=== PATIENT | female | born 1930 | race Caucasian/White ===

== ENCOUNTER 2017-03-25 16:01 | Inpatient (IN) | payer OTHER, MEDICARE ==
[2017-03-25] VITALS: BP 160/73; PULSE 98; RESP 18; TEMP 99.1; O2SAT 99
[~2017-03-25] VITALS: Ht 167.6 cm; Wt 58.4 kg
[~2017-03-25 16:01] MED LIST: ALOE25CA2 PO; AMLO5TAB13 PO; ASPI81TA11 PO; BENA20 PO; BUSP5 PO; CALCTAB32 PO; GLIM4 PO; LOSA25TA31; MIRT15TA2 PO; SIMV40 PO; VITA-13 PO
[2017-03-25 16:11] VITALS: BP 210/74; PULSE 101; RESP 16; TEMP 98.3; O2SAT 99
[2017-03-25] MEDS ORDERED: TRAZ50TA12 PO (16:21)
[2017-03-25] MEDS ORDERED: SERT25TA83 PO (16:21)
[2017-03-25] MEDS ORDERED: SENN1TAB PO (16:21)
[2017-03-25 16:29] LABS: HEMATOCRIT 35.3 % (35.0-46.0); MEAN CELL VOLUME 85.9 FL (80.0-100.0); MEAN CORPUSCULAR HEMOGLOBIN 28.5 PG (27.0-34.0); MEAN CORPUSCULAR HGB CONC 33.1 % (32.0-36.0); PLATELET COUNT 107 TH/MM3 (150-450); RED BLOOD COUNT 4.11 MIL/MM3 (4.00-5.30); RED CELL DISTRIBUTION WIDTH 14.1 % (11.6-17.2); WHITE BLOOD COUNT 30.6 TH/MM3 (4.0-11.0)
[2017-03-25 16:39] LABS: HEMO FLAGS AUTO DIFF
[2017-03-25 16:43] LABS: POTASSIUM 3.1 MEQ/L (3.5-5.1)
[2017-03-25 16:46] LABS: BICARBONATE 22.5 MEQ/L (21.0-32.0)
--- NOTE | 2017-03-25 16:50 | RADRPT ---
EXAM DATE/TIME: 03/25/2017 16:40 [facility] COMPARISON: No previous studies available for comparison. INDICATIONS : Short of breath. MEDICAL HISTORY : None. SURGICAL HISTORY : None. ENCOUNTER: Initial ACUITY: 1 day PAIN SCORE: 0/10 LOCATION: Bilateral chest FINDINGS: A single view of the chest demonstrates minimal basilar dependent atelectasis. No pneumothorax. No ef fusion. Heart size upper limits normal. CONCLUSION: 1. Minimal basilar atelectasis. No effusion or pneumothorax. Giovani Murphy MD on March 25, 2017 at 16:47 Board Certified Radiologist. This report was verified electronically.
[2017-03-25] MEDS ORDERED: SODIUM CHLOR 0.9% 1000 ML INJ 1,000 ML IV ONE ×2 (17:01)
[2017-03-25] MEDS ORDERED: VANCOMYCIN INJ 1,000 MG in SODIUM CHLOR 0.9% 250 ML INJ 250 ML IV STA (17:01)
[2017-03-25] MEDS ORDERED: SODIUM CHLOR 0.9% 1000 ML INJ 100 ML IV ONE (17:01)
[2017-03-25] MEDS ORDERED: CEFEPIME INJ 2,000 MG in SODIUM CHLORIDE 0.9% INJ 100 ML IV STA (17:01)
[2017-03-25 17:09] LABS: BANDS 11 % (0-6); METAMYELOCYTES 1 % (0-1); NEUTROPHIL # MANUAL DIFF 28.8 TH/MM3 (1.8-7.7); PLATELET ESTIMATE SMEAR LOW (NORMAL); PLATELET MORPHOLOGY NORMAL (NORMAL); POLYS (SEG NEUTROPHILS) 82 % (16-70); SCAN/DIFF FINAL DIFF MANUAL; WBC DIFF SAMPLE 100
[2017-03-25 17:22] LABS: BLOOD, URINE MOD (NEG); GLUCOSE,URINE 1000 OR GREATER mg/dL (NEG); KETONE, URINE NEG (NEG); NITRITE,URINE NEG (NEG); PH, URINE 5.5 (5.0-8.5)
--- NOTE | 2017-03-25 17:27 | PD ---
HPI Chief Complaint: Altered Mental Status Time Seen by Provider: 16:08 Travel History International Travel<30 days: No Contact w/Intl Traveler<30days: No Traveled to known affect area: No History of Present Illness HPI 86 yo F arrives by EMS 2/2 AMS at [place]. History is provided by detention personnel who note that the patient is alert and ambulatory. She has had intermittent fever for the past few days. Tylenol has been helpful. The patient stopped walking 2 days ago. Today the patient was observed evidently oozing chest wall lesion, foul-smelling urine and a tendency to scratch various lesions about her upper or lower extremities. Today the fever was not effectively treated by Tylenol leading to the ER evaluation. PFSH Past Medical History Diabetes: Yes Patient Takes Glucophage: No Diminished Hearing: Yes Hypertension: Yes Menopausal: Yes Social History Alcohol Use: Yes (1 DRINK ON HOLIDAYS) Tobacco Use: No Substance Use: No Allergies-Medications (Allergen,Severity, Reaction): Coded Allergies: No Known Allergies (Verified , 03/25/17) Reported Meds & Prescriptions Reported Meds & Active Scripts Active Reported Senna Plus 8.6-50 mg (Sennosides-Docusate Sodium) 8.6 Mg-50 Mg Tab 2 Tab PO BID PRN Sertraline (Sertraline HCl) 25 Mg Tab 25 Mg PO DAILY Trazodone (Trazodone HCl) 50 Mg Tab 50 Mg PO HS Review of Systems ROS Limitations: Clinical Condition, Altered Mental Status General / Constitutional: Positive: Fever Respiratory: No: Cough Gastrointestinal: No: Vomiting Physical Exam Narrative GENERAL: 86 yo F, groans in response to tactile stimulus SKIN: Warm and dry. R anterior chest wall approx 5cm open lesion with purulent discharge and adjacent erythema. No crepitus. Multiple lesions with dried blood about the upper and lower extremities. Warmth about L lower extremity distal to knee. HEAD: Atraumatic. Normocephalic. EYES: Pupils equal and round. No scleral icterus. No injection or drainage. ENT: No nasal bleeding or discharge. Mucous membranes pink and moist. NECK: Trachea midline. No JVD. CARDIOVASCULAR: Tachycardia. Regular rhythm. RESPIRATORY: No accessory muscle use. Clear to auscultation. Breath sounds equal bilaterally. GASTROINTESTINAL: Abdomen soft, non-tender, nondistended. Hepatic and splenic margins not palpable. MUSCULOSKELETAL: Extremities without clubbing, cyanosis, or edema. No obvious deformities. NEUROLOGICAL: Pt verbal at time of straight catheterization. Moves all extremities. PSYCHIATRIC: Appropriate mood and affect; insight and judgment normal. Data Data Last Documented VS Vital Signs Date Time Temp Pulse Resp B/P (MAP) Pulse Ox O2 Delivery O2 Flow Rate FiO2 03/25/17 18:05 105 18 190/85 (120) 97 Room Air 03/25/17 16:11 98.3 VS reviewed Orders Orders Complete Blood Count With Diff (03/25/17 16:13) Urinalysis - C+S If Indicated (03/25/17 16:13) Wound Culture And Gram Stain (03/25/17 16:13) Chest, Single Ap (03/25/17 16:13) Ecg Monitoring (03/25/17 16:13) Iv Access Insert/Monitor (03/25/17 16:13) Cath For Specimen (03/25/17 16:13) Oximetry (03/25/17 16:13) Basic Metabolic Panel (Bmp) (03/25/17 16:13) Drug Screen, Random Urine (03/25/17 16:13) Lactic Acid Sepsis Protocol (03/25/17 17:01) Blood Culture (03/25/17 17:01) Vancomycin Inj (Vancomycin Inj) (03/25/17 17:01) Cefepime Inj (Maxipime Inj) (03/25/17 17:01) Sodium Chlor 0.9% 1000 Ml Inj (Ns 1000 M (03/25/17 17:01) Sodium Chlor 0.9% 1000 Ml Inj (Ns 1000 M (03/25/17 17:01) Sodium Chlor 0.9% 1000 Ml Inj (Ns 1000 M (03/25/17 17:01) Ct Abd/Pel W/O Iv Contrast (03/25/17 17:18) Hydromorphone Pf Inj (Dilaudid Pf Inj) (03/25/17 19:00) Admit Order (Ed Use Only) (03/25/17 18:49) Labs Laboratory Tests Test 03/25/17 16:08 03/25/17 16:20 03/25/17 17:20 Urine Collection Type CATH Urine Color YELLOW Urine Turbidity CLEAR Urine pH 5.5 Urine Specific [place] 1.028 Urine Protein 30 mg/dL Urine Glucose (UA) 1000 OR GREATER mg/dL Urine Ketones NEG mg/dL Urine Occult Blood MOD Urine Nitrite NEG Urine Bilirubin NEG Urine Leukocyte Esterase NEG Urine RBC 15-19 /hpf Urine WBC 0-2 /hpf Urine Squamous Epithelial Cells 0-5 /hpf Urine Renal Epithelial Cells 6-8 /hpf Urine Amorphous Sediment SMALL Microscopic Urinalysis Comment CULT NOT INDICATED Urine Collection Time 16:08 Urine Opiates Screen NEG Urine Barbiturates Screen NEG Urine Amphetamines Screen NEG Urine Benzodiazepines Screen NEG Urine Cocaine Screen NEG Urine Cannabinoids Screen NEG White Blood Count 30.6 TH/MM3 Red Blood Count 4.11 MIL/MM3 Hemoglobin 11.7 GM/DL Hematocrit 35.3 % Mean Corpuscular Volume 85.9 FL Mean Corpuscular Hemoglobin 28.5 PG Mean Corpuscular Hemoglobin Concent 33.1 % Red Cell Distribution Width 14.1 % Platelet Count 107 TH/MM3 Mean Platelet Volume 9.4 FL CBC Comment AUTO DIFF Differential Total Cells Counted 100 Neutrophils % (Manual) 82 % Band Neutrophils % 11 % Lymphocytes % 4 % Monocytes % 2 % Neutrophils # (Manual) 28.8 TH/MM3 Metamyelocytes 1 % Differential Comment FINAL DIFF MANUAL Platelet Estimate LOW Platelet Morphology Comment NORMAL Blood Urea Nitrogen 53 MG/DL Creatinine 2.00 MG/DL Random Glucose 388 MG/DL Calcium Level 8.3 MG/DL Sodium Level 145 MEQ/L Potassium Level 3.1 MEQ/L Chloride Level 111 MEQ/L Carbon Dioxide Level 22.5 MEQ/L Anion Gap 12 MEQ/L Estimat Glomerular Filtration Rate 24 ML/MIN Lactic Acid Level 4.1 mmol/L MDM Medical Decision Making Medical Screen Exam Complete: Yes Emergency Medical Condition: Yes Medical Record Reviewed: Yes Differential Diagnosis sepsis, severe sepsis, UTI, cellulitis, abscess, necrotizing fasciitis, MODS, PNA, diverticulitis Narrative Course Last 24 hours Impressions Abdomen/Pelvis CT 03/25/17 1718 Signed Impressions: Service Date/Time: March 17:35 - CONCLUSION: 1. Fecal impaction at the level of the rectum. Nonobstructive pattern. 2. Diffuse diverticulosis of the colon without evidence of acute diverticulitis. 3. Multiple bilateral renal cysts. 4. Atherosclerotic abdominal aorta. No aneurysm. 5. Trace atelectasis of the visualized lung bases. Obinna Knutosn MD Chest X-Ray 03/25/17 1613 Signed Impressions: Service Date/Time: March 16:40 - CONCLUSION: 1. Minimal basilar atelectasis. No effusion or pneumothorax. Giovani Murphy MD CBC & BMP Diagram 03/25/17 16:20 Calcium Level 8.3 L UA: No UTI CXR: no dense consolidation Pt meets septic shock criteria likely secondary R anterior chest wall skin lesion and multiple lesions about upper and lower extremities. 3L NS started, Cefepime and Vanco started. Admission for IVF, IV abx and monitoring Sepsis protocol lactic acid ordered d/w Dr Cheema Critical Care Narrative Aggregate critical care time was 30 minutes. Time to perform other separately billable procedures was not included in the critical care time. My time did not include minutes spent treating any other patients simultaneously or on activities that did not directly contribute to the patient's treatment. The services I provided to this patient were to treat and/or prevent clinically significant deterioration that could result in: cardiopulmonary arrest, multiorgan failure, permanent disability I provided critical care services requiring my management, as noted below: Chart data review, documentation time, medication orders and management, vital sign assessments/reviewing monitor data, ordering and reviewing lab tests, ordering and interpreting/reviewing x-rays and diagnostic studies, care of the patient and discussion of the patient with the admitting physicians. Sepsis Criteria SIRS Criteria (2 or more): Heart rate over 90, RR > 20 or PaCO2 < 32, WBC > 93886, < 4000 or > 10% bands Sepsis Criteria (SIRS+source): Infect source susp/known Severe Sepsis (+one): Lactate >2 Septic Shock Criteria: Lactic acid >=4 Diagnosis Primary Impression: Septic shock Additional Impressions: Acute kidney injury Constipation Qualified Codes: K59.00 - Constipation, unspecified Delirium due to another medical condition Admitting Information Admitting Physician Requests: Admit Johnson Storm MD Mar 25, 2017 17:27
[2017-03-25 17:30] LABS: METHOD OF COLLECTION CATH; URINE COLOR YELLOW (YELLW/STRAW); WBC, URINE 0-2 /hpf (0-5)
[2017-03-25 17:31] LABS: COMMENT (UR) CULT NOT INDICATED; CULTURE IF INDICATED CULT NOT INDICATED; RBC, URINE 15-19 /hpf (0-3); SQUAMOUS EPITHELIAL CELL URINE 0-5 /hpf (0-5)
[2017-03-25 18:05] VITALS: BP 190/85; PULSE 105; RESP 18; O2SAT 97
--- NOTE | 2017-03-25 18:08 | RADRPT ---
EXAM DATE/TIME: 03/25/2017 17:35 [facility] COMPARISON: No previous studies available for comparison. INDICATIONS : Abdominal pain. General weakness. Altered mental status. WBC = 30.6 ORAL CONTRAST: No oral contrast ingested. RADIATION DOSE: 6.96 CTDIvol (mGy) MEDICAL HISTORY : Hypertension. Diabetes mellitus type 2. SURGICAL HISTORY : None. ENCOUNTER: Initial ACUITY: 1 day PAIN SCALE: Non-responsive LOCATION: Abdomen. TECHNIQUE: Volumetric scanning of the abdomen and pelvis was performed. Using automated exposure control and ad justment of the mA and/or kV according to patient size, radiation dose was kept as low as reasonably achievable to obtain optimal diagnostic quality images. DICOM format image data is available electro nically for review and comparison. FINDINGS: Large amount of stool seen in the rectum. Rectum measures approximately 7.4 x 8.1 cm in cross-section . There is rather florid diverticulosis of the entire colon but I don't see any evidence of acute div erticulitis. There is no small bowel distention. No acute abnormality seen of the solid organs. Multiple cysts are seen of both kidneys measuring up t o 8.8 cm on the right and up to 6.2 cm on the left. Abdominal aorta is densely atherosclerotic. No aneurysm. Trace atelectasis seen in the visualized lung bases. No acute bony abnormality seen. CONCLUSION: 1. Fecal impaction at the level of the rectum. Nonobstructive pattern. 2. Diffuse diverticulosis of the colon without evidence of acute diverticulitis. 3. Multiple bilateral renal cysts. 4. Atherosclerotic abdominal aorta. No aneurysm. 5. Trace atelectasis of the visualized lung bases. Obinna Knutson MD on March 25, 2017 at 18:03 Board Certified Radiologist. This report was verified electronically.
[2017-03-25] MEDS ORDERED: HYDROmorphone HCL PF 1 MG/ML VIAL IV PUSH ONE (19:00)
[2017-03-25] MEDS: SODIUM CHLOR 0.9% 1000 ML INJ 1,000 ML IV SCH (19:13)
[2017-03-25] MEDS ORDERED: Vancomycin Consult Pharmacy 1 EA OTHER SCH (19:15)
[2017-03-25] MEDS ORDERED: ACETAMINOPHEN 325 MG TAB PO PRN (19:15)
[2017-03-25] MEDS ORDERED: GLUCAGON 1 MG/ML VIAL OTHER PRN (19:15)
[2017-03-25] MEDS ORDERED: BISACODYL 10 MG SUPP RECTAL PRN (19:15)
[2017-03-25] MEDS ORDERED: SENNOSIDES 8.6 MG TAB PO PRN (19:15)
[2017-03-25] MEDS ORDERED: SODIUM CHLORIDE 0.9% FLUSH 10 ML FLUSH IV FLUSH PRN (19:15)
[2017-03-25] MEDS ORDERED: DEXTROSE 50% IN WATER 50 ML VIAL(D50) IV PUSH PRN (19:15)
[2017-03-25] MEDS ORDERED: MAGNESIUM HYDROXIDE SUSP 30 ML CUP PO PRN (19:15)
[2017-03-25] MEDS ORDERED: MORPHINE SULFATE 4 MG/ML INJ IV PUSH PRN (19:15)
[2017-03-25] MEDS ORDERED: ACETAMINOPHEN/HYDROcodone 325 MG/5 MG TAB PO PRN (19:15)
[2017-03-25] MEDS ORDERED: LACTULOSE SYRUP 20 GM/30 ML CUP PO PRN (19:15)
[2017-03-25 19:24] LABS: LACTIC ACID GHOST NOT REPORTABLE
[2017-03-25 20:13] VITALS: BP 181/84; PULSE 104; RESP 18; O2SAT 97
[2017-03-25] MEDS: SODIUM CHLORIDE 0.9% FLUSH 10 ML FLUSH IV FLUSH SCH (20:55)
[2017-03-25] MEDS: DOCUSATE SODIUM 50 MG/SENNA 8.6 MG TAB PO SCH (21:00)
[2017-03-25] MEDS ORDERED: INSULIN ASPART SUPPLEMENTAL SCALE SQ SCH (21:00)
[2017-03-25] MEDS: POTASSIUM CHLOR 20 MEQ PREMIX 100 ML IV SCH ×2 (21:15→21:47)
[2017-03-25 22:07] VITALS: BP 184/86; PULSE 104; RESP 18; O2SAT 97
[2017-03-26] VITALS (19 sets, daily range): BP systolic 142–161; BP diastolic 63–71; PULSE 74–115; RESP 18–24; TEMP 97.8–98.9; O2SAT 95–99
[2017-03-26] MEDS ORDERED: POTASSIUM CHLOR 20 MEQ PREMIX 100 ML ONE (01:29)
[2017-03-26 04:35] LABS: AUTOMATED NEUTROPHIL # 31.9 TH/MM3 (1.8-7.7); BASOPHIL % 0.1 % (0.0-2.0); EOSINOPHIL # 0.3 TH/MM3 (0-0.4); EOSINOPHIL % 0.8 % (0.0-4.0); HEMATOCRIT 34.3 % (35.0-46.0); LYMPH % 2.3 % (9.0-44.0); LYMPHOCYTE # 0.8 TH/MM3 (1.0-4.8); MEAN CELL VOLUME 85.7 FL (80.0-100.0); MEAN CORPUSCULAR HEMOGLOBIN 28.4 PG (27.0-34.0); MEAN CORPUSCULAR HGB CONC 33.1 % (32.0-36.0); MONO % 0.6 % (0.0-8.0); NEUT % 96.2 % (16.0-70.0); PLATELET COUNT 130 TH/MM3 (150-450); WHITE BLOOD COUNT 33.2 TH/MM3 (4.0-11.0)
[2017-03-26 04:37] LABS: HEMO FLAGS AUTO DIFF
[2017-03-26 04:53] LABS: ALKALINE PHOSPHATASE 87 U/L (45-117); ALT (GPT) 23 U/L (10-53); ANION GAP 11 MEQ/L (5-15); AST (GOT) 16 U/L (15-37); BICARBONATE 20.6 MEQ/L (21.0-32.0); BLOOD UREA NITROGEN 45 MG/DL (7-18); CHLORIDE 120 MEQ/L (98-107); GLOMERULAR FILTRATION RATE 35 ML/MIN (>89); POTASSIUM 3.5 MEQ/L (3.5-5.1); SODIUM (NA) 152 MEQ/L (136-145)
[2017-03-26 04:55] LABS: BANDS 16 % (0-6); NEUTROPHIL # MANUAL DIFF 30.9 TH/MM3 (1.8-7.7); POLYS (SEG NEUTROPHILS) 77 % (16-70); WBC DIFF SAMPLE 100
[2017-03-26 04:56] LABS: PLATELET ESTIMATE SMEAR LOW (NORMAL); PLATELET MORPHOLOGY NORMAL (NORMAL); SCAN/DIFF FINAL DIFF MANUAL
[2017-03-26] MEDS: SODIUM CHLOR 0.9% 1000 ML INJ 1,000 ML IV SCH ×2 (06:07→09:30)
[2017-03-26] MEDS ORDERED: DEXTROSE 50% IN WATER 50 ML VIAL(D50) IV PUSH PRN (08:30)
[2017-03-26] MEDS ORDERED: GLUCAGON 1 MG/ML VIAL OTHER PRN (08:30)
[2017-03-26] MEDS ORDERED: CEFEPIME INJ 1,000 MG in SODIUM CHLORIDE 0.9% INJ 100 ML IV SCH (09:00)
[2017-03-26] MEDS ORDERED: VANCOMYCIN INJ 1,000 MG in SODIUM CHLOR 0.9% 250 ML INJ 250 ML IV ONE (09:00)
[2017-03-26] MEDS ORDERED: SOD PHOSPHATE/SOD BIPHOSPHATE (ADULT) ENEMA 133ML RECTAL ONE (09:00)
[2017-03-26] MEDS: SODIUM CHLORIDE 0.9% FLUSH 10 ML FLUSH IV FLUSH SCH ×2 (09:00→21:29)
[2017-03-26] MEDS: DOCUSATE SODIUM 50 MG/SENNA 8.6 MG TAB PO SCH ×2 (09:00→21:00)
--- NOTE | 2017-03-26 09:38 | HHI.HP ---
[facility] Ad[facility] Diagnosis Septic shock, abscess right chest wall, cellulitis right leg, acute metabolic encephalopathy Diagnoses: Travel History International Travel<30 Days: No Contact w/Intl Traveler <30 Da: No Traveled to Known Affected Are: No Sepsis Criteria SIRS Criteria (2 or more): Heart rate over 90, WBC > 52556, < 4000 or > 10% bands Severe Sepsis (+one): Acute Oliguria/Renal Failure Septic Shock Criteria: Lactic acid >=4 History of Present Illness This is a 86 year-old female with past medical history of type 2 diabetes, dementia who was brought to the emergency department from a local nursing facility for decreased mentation. Apparently normally the patient is alert and ambulatory however was just laying in bed at the group home minimally responsive. History was obtained from reviewing the patient's ER notes as well as the group home notes. The patient appears to have advanced dementia and is only muttering nonsensical words and is unable to provide a history. I additionally tried to contact her listed contacts Shanelle however there was no answer at the phone number provided. The patient was noted to have an abscess of the right chest wall in the emergency department which was freely draining. She was also found to have acute kidney injury, leukocytosis of 30,000, lactic acid of 5 but a stable blood pressure. Abdominal CT scan showed no acute process but did show fecal impaction at the rectum. The patient was given vancomycin and cefepime, IV fluid boluses. Repeat lactic acid was 2.6. Other review systems not obtainable at this time. Past Family Social History Past Medical History Type 2 diabetes Hypertension Dementia Depression Reported Medications Allergies Coded Allergies Type Severity Reaction Last Updated Verified No Known Allergies 03/25/17 Yes Active Scripts Medications Dose Route/Sig Max Daily Dose Days Date Category Senna Plus 8.6-50 mg (Sennosides-Docusate Sodium) 8.6 Mg-50 Mg Tab 2 Tab PO BID PRN 03/25/17 Reported Sertraline (Sertraline HCl) 25 Mg Tab 25 Mg PO DAILY 03/25/17 Reported Trazodone (Trazodone HCl) 50 Mg Tab 50 Mg PO HS 03/25/17 Reported Allergies: Coded Allergies: No Known Allergies (Verified , 03/25/17) Family History Not obtainable at this time Social History Not obtainable Physical Exam Vital Signs Vital Signs Date Time Temp Pulse Resp B/P (MAP) Pulse Ox O2 Delivery O2 Flow Rate FiO2 03/26/17 08:00 90 03/26/17 07:00 90 03/26/17 06:00 92 03/26/17 05:00 98 03/26/17 04:00 97 03/26/17 04:00 97.8 96 20 143/63 (89) 99 03/26/17 03:00 103 03/26/17 02:00 100 03/26/17 01:00 115 03/25/17 23:12 97 18 97 03/25/17 22:07 104 18 184/86 (118) 97 Room Air 03/25/17 20:13 104 18 181/84 (116) 97 Room Air 03/25/17 18:05 105 18 190/85 (120) 97 Room Air 03/25/17 18:05 97 Room Air 03/25/17 16:11 98.3 101 16 210/74 (119) 99 Physical Exam GENERAL: Elderly malnourished appearing female laying in bed staring at the ceiling. SKIN: Warm and dry. The left foot and ankle is warm with erythema. She has numerous superficial wounds over extremities with secondary excoriation. Right chest has a superficial abscess approximately 4 x 4 centimeters which is draining copious purulent material. HEAD: Normocephalic. EYES: No scleral icterus. No injection or drainage. NECK: Supple, trachea midline. No JVD or lymphadenopathy. CARDIOVASCULAR: Regular rate and rhythm without murmurs, gallops, or rubs. RESPIRATORY: Breath sounds equal bilaterally. No accessory muscle use. GASTROINTESTINAL: Abdomen soft, non-tender, nondistended. EXTREMITIES: 1+ pedal edema bilaterally. The left foot and ankle is warm with erythema. She has numerous superficial wounds over extremities with secondary excoriation. Right chest has a superficial abscess approximately 4 x 4 centimeters which is draining copious purulent material. NEUROLOGICAL: Awake, alert, not oriented. Speech is nonsensical. Does not follow commands. Laboratory Laboratory Tests Test 03/25/17 16:08 03/25/17 16:20 03/25/17 17:20 03/25/17 19:40 Urine Collection Type CATH Urine Color YELLOW Urine Turbidity CLEAR Urine pH 5.5 Urine Specific [place] 1.028 Urine Protein 30 Urine Glucose (UA) 1000 OR GREATER Urine Ketones NEG Urine Occult Blood MOD Urine Nitrite NEG Urine Bilirubin NEG Urine Leukocyte Esterase NEG Urine RBC 15-19 Urine WBC 0-2 Urine Squamous Epithelial Cells 0-5 Urine Renal Epithelial Cells 6-8 Urine Amorphous Sediment SMALL Microscopic Urinalysis Comment CULT NOT INDICATED Urine Collection Time 16:08 Urine Opiates Screen NEG Urine Barbiturates Screen NEG Urine Amphetamines Screen NEG Urine Benzodiazepines Screen NEG Urine Cocaine Screen NEG Urine Cannabinoids Screen NEG White Blood Count 30.6 Red Blood Count 4.11 Hemoglobin 11.7 Hematocrit 35.3 Mean Corpuscular Volume 85.9 Mean Corpuscular Hemoglobin 28.5 Mean Corpuscular Hemoglobin Concent 33.1 Red Cell Distribution Width 14.1 Platelet Count 107 Mean Platelet Volume 9.4 CBC Comment AUTO DIFF Differential Total Cells Counted 100 Neutrophils % (Manual) 82 Band Neutrophils % 11 Lymphocytes % 4 Monocytes % 2 Neutrophils # (Manual) 28.8 Metamyelocytes 1 Differential Comment FINAL DIFF MANUAL Platelet Estimate LOW Platelet Morphology Comment NORMAL Blood Urea Nitrogen 53 Creatinine 2.00 Random Glucose 388 Calcium Level 8.3 Sodium Level 145 Potassium Level 3.1 Chloride Level 111 Carbon Dioxide Level 22.5 Anion Gap 12 Estimat Glomerular Filtration Rate 24 Lactic Acid Level 4.1 2.4 Test 03/26/17 04:05 White Blood Count 33.2 Red Blood Count 4.00 Hemoglobin 11.4 Hematocrit 34.3 Mean Corpuscular Volume 85.7 Mean Corpuscular Hemoglobin 28.4 Mean Corpuscular Hemoglobin Concent 33.1 Red Cell Distribution Width 14.0 Platelet Count 130 Mean Platelet Volume 10.7 Neutrophils (%) (Auto) 96.2 Lymphocytes (%) (Auto) 2.3 Monocytes (%) (Auto) 0.6 Eosinophils (%) (Auto) 0.8 Basophils (%) (Auto) 0.1 Neutrophils # (Auto) 31.9 Lymphocytes # (Auto) 0.8 Monocytes # (Auto) 0.2 Eosinophils # (Auto) 0.3 Basophils # (Auto) 0.0 CBC Comment AUTO DIFF Differential Total Cells Counted 100 Neutrophils % (Manual) 77 Band Neutrophils % 16 Lymphocytes % 4 Monocytes % 3 Neutrophils # (Manual) 30.9 Differential Comment FINAL DIFF MANUAL Platelet Estimate LOW Platelet Morphology Comment NORMAL Red Cell Morphology Comment NORMAL Blood Urea Nitrogen 45 Creatinine 1.40 Random Glucose 168 Total Protein 5.6 Albumin 1.7 Calcium Level 7.8 Alkaline Phosphatase 87 Aspartate Amino Transf (AST/SGOT) 16 Alanine Aminotransferase (ALT/SGPT) 23 Total Bilirubin 1.0 Sodium Level 152 Potassium Level 3.5 Chloride Level 120 Carbon Dioxide Level 20.6 Anion Gap 11 Estimat Glomerular Filtration Rate 35 Date/Time Source Procedure Growth Status 03/25/17 17:20 Blood Peripheral Aerobic Blood Culture Pending Received 03/25/17 17:20 Blood Peripheral Anaerobic Blood Culture Pending Received 03/25/17 16:30 Wound Chest Gram Stain Pending Received 03/25/17 16:30 Wound Chest Wound Culture Pending Received Result Diagram: 03/26/1740403/26/17404 Septic Shock Reassessment Heart: Regular rate and rhythm Lungs: Clear Skin: Warm Peripheral Pulses: Bounding Right Radial Bounding Left Radial Capillary Refill: <2 seconds Caprini VTE Risk Assessment Caprini VTE Risk Assessment: Mod/High Risk (score >= 2) Caprini Risk Assessment Model Point Value = 1 Point Value = 2 Point Value = 3 Point Value = 5 Age 41-60 Minor surgery BMI > 25 kg/m2 Swollen legs Varicose veins or History of unexplained or recurrent spontaneous Oral contraceptives or hormone replacement Sepsis (< 1 month) Serious lung disease, including pneumonia (< 1 month) Abnormal pulmonary function Acute myocardial infarction Congestive heart failure (< 1 month) History of inflammatory bowel disease Medical patient at bed rest Age 61-74 Arthroscopic surgery Major open surgery (> 45 min) Laparoscopic surgery (> 45 min) Malignancy Confined to bed (> 72 hours) Immobilizing plaster cast Central venous access Age >= 75 History of VTE Family history of VTE Factor V Leiden Prothrombin [id number] Lupus anticoagulant Anticardiolipin antibodies Elevated serum homocysteine Heparin-induced thrombocytopenia Other congenital or acquired thrombophilia Stroke (< 1 month) Elective arthroplasty Hip, pelvis, or leg fracture Acute spinal cord injury (< 1 month) Prophylaxis Regimen Total Risk Factor Score Risk Level Prophylaxis Regimen 0-1 Low Early ambulation 2 Moderate Order ONE of the following: *Sequential Compression Device (SCD) *Heparin 5000 units SQ BID 3-4 Higher Order ONE of the following medications: *Heparin 5000 units SQ TID *Enoxaparin/Lovenox 40 mg SQ daily (WT < 150 kg, CrCl > 30 mL/min) *Enoxaparin/Lovenox 30 mg SQ daily (WT < 150 kg, CrCl > 10-29 mL/min) *Enoxaparin/Lovenox 30 mg SQ BID (WT < 150 kg, CrCl > 30 mL/min) AND/OR *Sequential Compression Device (SCD) 5 or more Highest Order ONE of the following medications: *Heparin 5000 units SQ TID (Preferred with Epidurals) *Enoxaparin/Lovenox 40 mg SQ daily (WT < 150 kg, CrCl > 30 mL/min) *Enoxaparin/Lovenox 30 mg SQ daily (WT < 150 kg, CrCl > 10-29 mL/min) *Enoxaparin/Lovenox 30 mg SQ BID (WT < 150 kg, CrCl > 30 mL/min) AND *Sequential Compression Device (SCD) Assessment and Plan Problem List: (1) Septic shock ICD Code: A41.9 - Sepsis, unspecified organism; R65.21 - Severe sepsis with septic shock Status: Acute (2) Fecal impaction in rectum ICD Code: K56.41 - Fecal impaction (3) Acute metabolic encephalopathy ICD Code: G93.41 - Metabolic encephalopathy (4) Cutaneous abscess of chest wall ICD Code: L02.213 - Cutaneous abscess of chest wall (5) Hypernatremia ICD Code: E87.0 - Hyperosmolality and hypernatremia (6) Leukocytosis ICD Code: D72.829 - Elevated white blood cell count, unspecified (7) Lactic acidosis ICD Code: E87.2 - Acidosis (8) Dementia ICD Code: F03.90 - Unspecified dementia without behavioral disturbance (9) Type 2 diabetes mellitus ICD Code: E11.9 - Type 2 diabetes mellitus without complications (10) Cellulitis of right lower leg ICD Code: L03.115 - Cellulitis of right lower limb (11) Acute kidney injury ICD Code: N17.9 - Acute kidney failure, unspecified Status: Acute (12) Bacteremia ICD Code: R78.81 - Bacteremia (13) Moderate malnutrition ICD Code: E44.0 - Moderate protein-calorie malnutrition Assessment and Plan -Septic shock due to right chest wall abscess, left foot cellulitis - initial lactic acid 5, white blood cell count 30,000, acute kidney injury - improving. Continue vancomycin and cefepime IV, IV fluids normal saline at 100 mL per hour. The abscess does not appear to need I&D as it is spontaneously draining, wound cultures pending. 4 out of 4 blood cultures are positive for gram- positive cocci. We'll consult infectious disease. -Hypernatremia, continue normal saline IV fluids. -Acute kidney injury, nonoliguric, improving. Continue IV fluids. -Type 2 diabetes - not on medications at the group home. Place on sliding scale insulin with Accu-Cheks. -Acute metabolic encephalopathy secondary to sepsis. Reorient as needed. We' ll consult speech therapy for swallow evaluation. Additionally consult physical therapy. -Hypertension - hold blood pressure medications for now. -Fecal impaction. Will treat with fleets enema. -Dementia - consult PT. -Depression - resume Celexa. -Moderate malnutrition - with low albumin, BMI 19. Consult speech therapy for swallow evaluation. -DVT prophylaxis with Lovenox subcutaneous. -DO NOT RESUSCITATE status, she has a yellow form from the [facility] in her chart. Critical care time 35 minutes. Kathie Cheema MD Mar 26, 2017 09:38
[2017-03-26] MEDS: INSULIN ASPART SUPPLEMENTAL SCALE SQ SCH ×3 (12:00→21:00)
--- NOTE | 2017-03-26 12:09 | PD.CONS ---
History of Present Illness Service Infectious disease Consult Requested By Dr Kathie Cheema Reason for Consult Severe sepsis, Bacteremia Primary Care Physician Unknown Diagnoses: (1) Cellulitis of left lower extremity (2) Gram positive septicemia (3) Septic shock (4) Cutaneous abscess of chest wall History of Present Illness Patient with advanced dementia - was sent from [place] for worsening mental status. Patient found to have wounds on legs - left > rt with cellulitis and wound with purulence rt side of chest and in septic shock. Review of Systems ROS Limitations: Clinical Condition, Altered Mental Status Past Family Social History Allergies: Coded Allergies: No Known Allergies (Verified , 03/25/17) Past Medical History Past Medical History Type 2 diabetes Hypertension Dementia Depression Reported Medications IV Vancomycin and Cefepime Social History Unable to obtain Physical Exam Vital Signs Vital Signs Date Time Temp Pulse Resp B/P (MAP) Pulse Ox O2 Delivery O2 Flow Rate FiO2 03/26/17 11:00 104 03/26/17 09:00 101 03/26/17 08:00 90 03/26/17 07:00 90 03/26/17 06:00 92 03/26/17 05:00 98 03/26/17 04:00 97 03/26/17 04:00 97.8 96 20 143/63 (89) 99 03/26/17 03:00 103 03/26/17 02:00 100 03/26/17 01:00 115 03/25/17 23:12 97 18 97 03/25/17 22:07 104 18 184/86 (118) 97 Room Air 03/25/17 20:13 104 18 181/84 (116) 97 Room Air 03/25/17 18:05 105 18 190/85 (120) 97 Room Air 03/25/17 18:05 97 Room Air 03/25/17 16:11 98.3 101 16 210/74 (119) 99 Physical Exam GENERAL: This is a malnourished chronically ill patient with advanced dementia SKIN: Multiple wounds on legs - left more than rt with LLE cellulitis. Rt upper chest wall with wound and purulence HEAD: Atraumatic. Normocephalic. No temporal or scalp tenderness. EYES: P No scleral icterus. No injection or drainage. ENT: Nose without bleeding, purulent drainage or septal hematoma. Throat without erythema, tonsillar hypertrophy or exudate. Uvula midline. Airway patent. NECK: Trachea midline. No JVD or lymphadenopathy. Supple, nontender, no meningeal signs. CARDIOVASCULAR: Regular rate and rhythm without murmurs, gallops, or rubs. RESPIRATORY: Clear to auscultation. Breath sounds equal bilaterally. No wheezes , rales, or rhonchi. GASTROINTESTINAL: Abdomen soft, non-tender, nondistended. No hepato-splenomegaly , or palpable masses. No guarding. MUSCULOSKELETAL: LLE cellulitis NEUROLOGICAL: Patient not responsive - with contractures of lower extremities Laboratory Laboratory Tests Test 03/25/17 16:08 03/25/17 16:20 03/25/17 17:20 03/25/17 19:40 Urine Collection Type CATH Urine Color YELLOW Urine Turbidity CLEAR Urine pH 5.5 Urine Specific [place] 1.028 Urine Protein 30 Urine Glucose (UA) 1000 OR GREATER Urine Ketones NEG Urine Occult Blood MOD Urine Nitrite NEG Urine Bilirubin NEG Urine Leukocyte Esterase NEG Urine RBC 15-19 Urine WBC 0-2 Urine Squamous Epithelial Cells 0-5 Urine Renal Epithelial Cells 6-8 Urine Amorphous Sediment SMALL Microscopic Urinalysis Comment CULT NOT INDICATED Urine Collection Time 16:08 Urine Opiates Screen NEG Urine Barbiturates Screen NEG Urine Amphetamines Screen NEG Urine Benzodiazepines Screen NEG Urine Cocaine Screen NEG Urine Cannabinoids Screen NEG White Blood Count 30.6 Red Blood Count 4.11 Hemoglobin 11.7 Hematocrit 35.3 Mean Corpuscular Volume 85.9 Mean Corpuscular Hemoglobin 28.5 Mean Corpuscular Hemoglobin Concent 33.1 Red Cell Distribution Width 14.1 Platelet Count 107 Mean Platelet Volume 9.4 CBC Comment AUTO DIFF Differential Total Cells Counted 100 Neutrophils % (Manual) 82 Band Neutrophils % 11 Lymphocytes % 4 Monocytes % 2 Neutrophils # (Manual) 28.8 Metamyelocytes 1 Differential Comment FINAL DIFF MANUAL Platelet Estimate LOW Platelet Morphology Comment NORMAL Blood Urea Nitrogen 53 Creatinine 2.00 Random Glucose 388 Calcium Level 8.3 Sodium Level 145 Potassium Level 3.1 Chloride Level 111 Carbon Dioxide Level 22.5 Anion Gap 12 Estimat Glomerular Filtration Rate 24 Lactic Acid Level 4.1 2.4 Test 03/26/17 04:05 03/26/17 10:05 White Blood Count 33.2 Red Blood Count 4.00 Hemoglobin 11.4 Hematocrit 34.3 Mean Corpuscular Volume 85.7 Mean Corpuscular Hemoglobin 28.4 Mean Corpuscular Hemoglobin Concent 33.1 Red Cell Distribution Width 14.0 Platelet Count 130 Mean Platelet Volume 10.7 Neutrophils (%) (Auto) 96.2 Lymphocytes (%) (Auto) 2.3 Monocytes (%) (Auto) 0.6 Eosinophils (%) (Auto) 0.8 Basophils (%) (Auto) 0.1 Neutrophils # (Auto) 31.9 Lymphocytes # (Auto) 0.8 Monocytes # (Auto) 0.2 Eosinophils # (Auto) 0.3 Basophils # (Auto) 0.0 CBC Comment AUTO DIFF Differential Total Cells Counted 100 Neutrophils % (Manual) 77 Band Neutrophils % 16 Lymphocytes % 4 Monocytes % 3 Neutrophils # (Manual) 30.9 Differential Comment FINAL DIFF MANUAL Platelet Estimate LOW Platelet Morphology Comment NORMAL Red Cell Morphology Comment NORMAL Blood Urea Nitrogen 45 Creatinine 1.40 Random Glucose 168 Total Protein 5.6 Albumin 1.7 Calcium Level 7.8 Alkaline Phosphatase 87 Aspartate Amino Transf (AST/SGOT) 16 Alanine Aminotransferase (ALT/SGPT) 23 Total Bilirubin 1.0 Sodium Level 152 Potassium Level 3.5 Chloride Level 120 Carbon Dioxide Level 20.6 Anion Gap 11 Estimat Glomerular Filtration Rate 35 Lactic Acid Level 1.8 Date/Time Source Procedure Growth Status 03/25/17 17:20 Blood Peripheral Aerobic Blood Culture - Preliminary Gram Positive Cocci Resulted 03/25/17 17:20 Anaerobic Blood Culture - Preliminary Gram Positive Cocci Resulted 03/25/17 16:30 Wound Chest Gram Stain - Final Resulted 03/25/17 16:30 Wound Chest Wound Culture Pending Resulted Result Diagram: 03/26/175 03/26/17 0405 Assessment and Plan Problem List: (1) Septic shock ICD Codes: A41.9 - Sepsis, unspecified organism; R65.21 - Severe sepsis with septic shock Status: Acute Plan: Follow Blood cultures Continue IV Vancomycin Stop Cefepime Start Cefazolin 1 g IV q8hrs Wound care (2) Gram positive septicemia ICD Codes: A41.89 - Other specified sepsis (3) Cellulitis of left lower extremity ICD Codes: L03.116 - Cellulitis of left lower limb (4) Cutaneous abscess of chest wall ICD Codes: L02.213 - Cutaneous abscess of chest wall (5) Dementia ICD Codes: F03.90 - Unspecified dementia without behavioral disturbance Katelin Cohen MD Mar 26, 2017 12:09
[2017-03-27] VITALS (25 sets, daily range): BP systolic 134–171; BP diastolic 67–86; PULSE 69–90; RESP 13–29; TEMP 98.1–99.2; O2SAT 97–100
[2017-03-27] MEDS: SODIUM CHLOR 0.9% 1000 ML INJ 1,000 ML IV SCH ×2 (01:19→12:21)
[2017-03-27] MEDS ORDERED: PHARMACY ORDERED LAB ONE (05:00)
[2017-03-27 06:34] LABS: AUTOMATED NEUTROPHIL # 34.6 TH/MM3 (1.8-7.7); BASOPHIL # 0.3 TH/MM3 (0-0.2); BASOPHIL % 0.9 % (0.0-2.0); EOSINOPHIL # 0.1 TH/MM3 (0-0.4); EOSINOPHIL % 0.2 % (0.0-4.0); HEMO FLAGS AUTO DIFF; LYMPH % 2.6 % (9.0-44.0); LYMPHOCYTE # 0.9 TH/MM3 (1.0-4.8); MEAN CELL VOLUME 85.6 FL (80.0-100.0); MEAN CORPUSCULAR HGB CONC 32.7 % (32.0-36.0); MONO % 1.4 % (0.0-8.0); NEUT % 94.9 % (16.0-70.0); PLATELET COUNT 133 TH/MM3 (150-450); RED BLOOD COUNT 3.63 MIL/MM3 (4.00-5.30); RED CELL DISTRIBUTION WIDTH 14.3 % (11.6-17.2); WHITE BLOOD COUNT 36.4 TH/MM3 (4.0-11.0)
[2017-03-27 06:54] LABS: BICARBONATE 19.6 MEQ/L (21.0-32.0); POTASSIUM 3.1 MEQ/L (3.5-5.1)
[2017-03-27 07:20] LABS: BANDS 9 % (0-6); NEUTROPHIL # MANUAL DIFF 35.3 TH/MM3 (1.8-7.7); POLYS (SEG NEUTROPHILS) 88 % (16-70); WBC DIFF SAMPLE 100
[2017-03-27 07:21] LABS: BURR CELLS 1+ (NORMAL); KERATOCYTES OCC (NORMAL); ROULEAUX PRESENT (NORMAL)
[2017-03-27 07:22] LABS: DOHLE BODIES PRESENT (NONE SEEN); PLATELET ESTIMATE SMEAR LOW (NORMAL); PLATELET MORPHOLOGY NORMAL (NORMAL); SCAN/DIFF FINAL DIFF MANUAL; TOXIC GRANULATION 1+ (NORMAL)
[2017-03-27] MEDS: INSULIN ASPART SUPPLEMENTAL SCALE SQ SCH ×3 (08:00→17:00)
[2017-03-27] MEDS: DOCUSATE SODIUM 50 MG/SENNA 8.6 MG TAB PO SCH (10:04)
[2017-03-27] MEDS: SODIUM CHLORIDE 0.9% FLUSH 10 ML FLUSH IV FLUSH SCH (10:04)
[2017-03-27] MEDS ORDERED: MAGNESIUM SULFATE INJ 4 GM in SODIUM CHLORIDE 0.9% INJ 92 ML IV PRN (11:00)
[2017-03-27] MEDS ORDERED: POTASSIUM PHOSPHATE INJ 30 MMOL in SODIUM CHLOR 0.9% 250 ML INJ 250 ML IV PRN (11:00)
[2017-03-27] MEDS ORDERED: POTASSIUM PHOSPHATE MONOBASIC 500 MG TAB PO PRN (11:00)
[2017-03-27] MEDS ORDERED: MAGNESIUM SULFATE INJ 2 GM in SODIUM CHLORIDE 0.9% INJ 96 ML IV PRN (11:00)
[2017-03-27] MEDS ORDERED: POTASSIUM PHOSPHATE MONOBASIC 500 MG TAB PO/TUBE PRN (11:00)
[2017-03-27] MEDS ORDERED: POTASSIUM CHLOR 20 MEQ PREMIX 100 ML IV PRN ×2 (11:00)
[2017-03-27] MEDS ORDERED: MAGNESIUM OXIDE 400 MG TAB PO PRN (11:00)
[2017-03-27] MEDS ORDERED: SODIUM PHOSPHATE INJ 30 MMOL in SODIUM CHLOR 0.9% 250 ML INJ 240 ML IV PRN (11:00)
[2017-03-27] MEDS ORDERED: POTASSIUM CHLORIDE 25 MEQ EFFERVESCENT TAB PO PRN (11:00)
[2017-03-27] MEDS ORDERED: POTASSIUM CHLOR 40 MEQ PREMIX 100 ML IV PRN ×2 (11:00)
[2017-03-27] MEDS ORDERED: VANCOMYCIN 1,000 MG/NS 250 ML IV ONE ×2 (13:00)
--- NOTE | 2017-03-27 13:17 | HHI.PR ---
Subjective Remarks Blood pressure has been stable she is been afebrile. Objective Vitals Vital Signs Date Time Temp Pulse Resp B/P (MAP) Pulse Ox O2 Delivery O2 Flow Rate FiO2 03/27/17 12:15 72 15 99 03/27/17 12:01 74 29 145/75 (98) 99 03/27/17 12:00 76 03/27/17 12:00 70 25 99 03/27/17 11:58 99 Nasal Cannula 2.00 03/27/17 11:45 72 14 99 03/27/17 11:30 74 15 99 03/27/17 11:15 78 16 99 03/27/17 11:01 88 16 164/84 (110) 99 03/27/17 11:00 90 20 99 03/27/17 10:01 78 03/27/17 10:00 78 03/27/17 08:00 100 Nasal Cannula 4.00 03/27/17 07:01 98.9 78 14 142/67 (92) 100 03/27/17 06:00 72 03/27/17 04:00 82 03/27/17 04:00 99.2 72 27 137/68 (91) 99 03/27/17 02:00 76 03/27/17 00:00 76 03/27/17 00:00 98.9 85 13 134/67 (89) 100 03/26/17 22:00 88 03/26/17 20:00 98 03/26/17 20:00 98.6 76 24 145/70 (95) 95 03/26/17 18:00 80 03/26/17 17:00 74 03/26/17 16:00 80 03/26/17 15:00 77 03/26/17 15:00 98.9 75 18 142/64 (90) 98 03/26/17 14:00 85 I/O 03/26/17 03/26/17 03/26/17 03/27/17 03/27/17 03/27/17 07:00 15:00 23:00 07:00 15:00 23:00 Intake Total 783 ml 713 ml 1140 ml 0 ml Balance 783 ml 713 ml 1140 ml 0 ml Intake Oral 0 ml IV Total 783 ml 713 ml 1140 ml # Voids 4 3 4 1 # Bowel Movements 0 1 0 Result Diagram: 03/27/1760903/27/17609 Objective Remarks GENERAL: Elderly malnourished appearing female laying in bed staring at the ceiling. SKIN: Warm and dry. The left foot and ankle is warm with erythema, however improved today. She has numerous superficial wounds over extremities with secondary excoriation. Right chest has a superficial abscess smaller today with scant drainage and produced erythema, no induration. HEAD: Normocephalic. EYES: No scleral icterus. No injection or drainage. NECK: Supple, trachea midline. No JVD or lymphadenopathy. CARDIOVASCULAR: Regular rate and rhythm without murmurs, gallops, or rubs. RESPIRATORY: Breath sounds equal bilaterally. No accessory muscle use. GASTROINTESTINAL: Abdomen soft, non-tender, nondistended. EXTREMITIES: 1+ pedal edema bilaterally. She has numerous superficial wounds over extremities with secondary excoriation. NEUROLOGICAL: Awake, alert, not oriented. Speech is nonsensical. Does not follow commands. Laboratory A/P Problem List: (1) Septic shock ICD Code: A41.9 - Sepsis, unspecified organism; R65.21 - Severe sepsis with septic shock Status: Acute (2) Fecal impaction in rectum ICD Code: K56.41 - Fecal impaction (3) Acute metabolic encephalopathy ICD Code: G93.41 - Metabolic encephalopathy (4) Cutaneous abscess of chest wall ICD Code: L02.213 - Cutaneous abscess of chest wall (5) Hypernatremia ICD Code: E87.0 - Hyperosmolality and hypernatremia (6) Leukocytosis ICD Code: D72.829 - Elevated white blood cell count, unspecified (7) Lactic acidosis ICD Code: E87.2 - Acidosis (8) Dementia ICD Code: F03.90 - Unspecified dementia without behavioral disturbance (9) Type 2 diabetes mellitus ICD Code: E11.9 - Type 2 diabetes mellitus without complications (10) Cellulitis of right lower leg ICD Code: L03.115 - Cellulitis of right lower limb (11) Acute kidney injury ICD Code: N17.9 - Acute kidney failure, unspecified Status: Acute (12) Bacteremia ICD Code: R78.81 - Bacteremia (13) Moderate malnutrition ICD Code: E44.0 - Moderate protein-calorie malnutrition Assessment and Plan -Septic shock due to right chest wall abscess, left foot cellulitis, group a beta strep bacteremia - initial lactic acid 5, now trended down to normal. White blood cell count 30,000, acute kidney injury - improving. Continue vancomycin and cefazolin IV, IV fluids normal saline at 100 mL per hour. The abscess does not appear to need I&D as it is spontaneously draining, wound cultures growing MRSA. 4 out of 4 blood cultures are positive for group A beta strep, source is the abscess. Infectious disease is following. -Hypernatremia, worsened today, continue normal saline IV fluids. -Acute kidney injury, nonoliguric, improving. Continue IV fluids. -Type 2 diabetes - not [facility] medications [facility]. Place on sliding scale insulin with Accu-Cheks. -Acute metabolic encephalopathy secondary to sepsis. Reorient as needed. She is nothing by mouth per speech therapy for swallow evaluation. Additionally consult physical therapy. -Hypertension - hold blood pressure medications for now. -Fecal impaction. Will treat with fleets enema. -Dementia - consult PT. -Depression - resume Celexa. -Moderate malnutrition - with low albumin, BMI 19. Nothing by mouth currently per speech therapy evaluation. -DVT prophylaxis with Lovenox subcutaneous. -DO NOT RESUSCITATE status, she has a yellow form from the [facility] in her chart. Healthcare surrogate is her neighbor and long-time friend Shanelle. I discussed with Shanelle via phone today. She states the patient has had a decline over the past year has been [facility] the [facility]. She last saw the patient in December at which time she was ambulatory and eating however she is amazed that the decline the patient has had. The patient was previously on hospice 2 years ago. Coronal request that we consult hospice again. We'll do so. Kathie Cheema MD Mar 27, 2017 13:17
== END 2017-03-27 20:40 | disposition hospice, inpatient (51) | DRG 871 ==
LOC: PHED 16:01 → PHEDA 18:50 → PHICU 22:59
PROVIDERS: ADMIT Family Medicine; ATTEND Family Medicine
DX: A41.9 Sepsis, unspecified organism (principal); G93.41 Metabolic encephalopathy; R65.21 Severe sepsis with septic shock; N17.9 Acute kidney failure, unspecified; E87.0 Hyperosmolality and hypernatremia; E44.0 Moderate protein-calorie malnutrition; E87.2 Acidosis; L02.213 Cutaneous abscess of chest wall; L03.115 Cellulitis of right lower limb; L03.116 Cellulitis of left lower limb; Z68.1 Body mass index [BMI] 19.9 or less, adult; E11.9 Type 2 diabetes mellitus without complications; B95.4 Other streptococcus as the cause of diseases classified elsewhere; I10 Essential (primary) hypertension; K56.41 Fecal impaction; F03.90 Unspecified dementia, unspecified severity, without behavioral disturbance, psychotic disturbance, mood disturbance, and anxiety; F32.9 Major depressive disorder, single episode, unspecified; Z66 Do not resuscitate
CPT/HCPCS: 71010; 74176; 80048; 80053; 80202; 80307; 81001; 82948; 83605; 84100; 85007; 85027; 86403; 87040; 87070; 87147; 87186; 87205; 96365; 96375; J0690; J0692; J1815; J3370; J3480; J7030; J7050; P9612